=== PATIENT | male | born 1980 | race American Indian/Alaskan Native ===

== ENCOUNTER 2017-05-08 01:03 | Emergency (ER) | payer MEDICAID ==
[2017-05-08 01:04] VITALS: BMI 65.1
[2017-05-08 01:11] VITALS: BP 145/78; PULSE 72; RESP 16; TEMP 98; O2SAT 100
--- NOTE | 2017-05-08 02:11 | ED PDOC ---
HPI: Psych/Substance Abuse Time Seen by Provider: 05/08/17 01:35 Chief Complaint (Nursing): Substance Abuse Chief Complaint (Provider): Substance abuse History Per: Patient History/Exam Limitations: no limitations Onset/Duration Of Symptoms: Days, Persistent Additional Complaint(s): 36yo male with history of poly-substance abuse, presents to ED requesting detoxification. When informed that this facility does not have detox, patient states he feels depressed and homicidal. He denies any active homicidal plans. Patient does admit to drug and alcohol use today. He denies any other medical complaints. Past Medical History Reviewed: Historical Data, Nursing Documentation, Vital Signs Vital Signs: Last Vital Signs Temp 98.0 F 05/08/17 01:09 Pulse 72 05/08/17 01:09 Resp 16 05/08/17 01:09 BP 145/78 05/08/17 01:09 Pulse Ox 100 05/08/17 01:09 - Medical History PMH: Asthma, Bipolar Disorder, Depression, HTN, Schizophrenia, Sleep Apnea Denies: Chronic Kidney Disease, Seizures, Sexually Transmitted Disease - Surgical History Surgical History: No Surg Hx - Family History Family History: States: No Known Family Hx, Unknown Family Hx - Social History Alcohol: > 2 Drinks/Day Drugs: Other (polysubstance abuse) - Immunization History Hx Tetanus Toxoid Vaccination: No Hx Influenza Vaccination: No Hx Pneumococcal Vaccination: No - Home Medications Home Medications: Ambulatory Orders Medication Instructions Recorded Depakote ER 05/04/17 [place] 05/04/17 - Allergies Allergies/Adverse Reactions: Allergies Allergy/AdvReac Type Severity Reaction Status Date / Time plum Allergy Intermediate ANAPHYLAXIS Verified 05/06/17 19:49 PORK AdvReac Mild VOMITING Verified 05/06/17 19:48 Review of Systems ROS Statement: Except As Marked, All Systems Reviewed And Found Negative Psych: Positive for: Depression, Other (homicidal ideation, no plan) Physical Exam - Reviewed Nursing Documentation Reviewed: Yes Vital Signs Reviewed: Yes - Physical Exam Appears: Positive for: Non-toxic, No Acute Distress Head Exam: Positive for: ATRAUMATIC, NORMAL INSPECTION, NORMOCEPHALIC Skin: Positive for: Normal Color Eye Exam: Positive for: Normal appearance, EOMI, PERRL Neck: Positive for: Supple Cardiovascular/Chest: Positive for: Regular Rate, Rhythm Respiratory: Positive for: Normal Breath Sounds. Negative for: Respiratory Distress Gastrointestinal/Abdominal: Positive for: Soft. Negative for: Tenderness Extremity: Positive for: Normal ROM Neurologic/Psych: Positive for: Alert, Oriented. Negative for: Motor/Sensory Deficits - Laboratory Results Result Diagrams: 05/08/17 03:03 05/08/17 03:03 - ECG O2 Sat by Pulse Oximetry: 100 (RA) Pulse Ox Interpretation: Normal Medical Decision Making Medical Decision Making: Impression: Alcohol abuse, drug abuse Plan: -- Labs -- Crisis evaluation Time: 422 Labs reviewed and are within normal limits. Patient did not develop any withdrawal symptoms while within the ED. Patient seen and evaluated by crisis team as well and is stable for discharge home. Diagnosis of: poly-substance drug abuse per Dr. Han. Scribe Attestation: Documented by Linda Cm, acting as a scribe for Abdirahman Renee MD Provider Scribe Attestation: All medical record entries made by the Scribe were at my direction and personally dictated by me. I have reviewed the chart and agree that the record accurately reflects my personal performance of the history, physical exam, medical decision making, and the department course for this patient. I have also personally directed, reviewed, and agree with the discharge instructions and disposition. Disposition - Clinical Impression Clinical Impression: Polysubstance abuse - Disposition Referrals: [facility] [Outside] Abelino Duque MD [Family Provider] - Disposition: Routine/Home Disposition Time: 04:24 Condition: STABLE Instructions: Depression (ED), Suicide Prevention for Children and Adolescents (DC), Polysubstance Abuse (ED) Forms: [employer] (Spanish)
[2017-05-08 03:18] LABS: BASO % 0.7 % (0.0-2.0); EOS # 0.1 K/uL (0.0-0.7); EOS % 1.3 % (0.0-4.0); HEMOGLOBIN 13.1 g/dL (12.0-18.0); LYMPH # 1.9 K/uL (1.0-4.3); LYMPH % 44.8 % (20.0-40.0); MEAN CELL VOLUME 98.8 fl (80.0-94.0); MEAN CORPUSCULAR HGB CONC 33.4 g/dL (33.0-37.0); MONO # 0.5 K/uL (0.0-0.8); MONO % 11.6 % (0.0-10.0); NEUT # 1.8 K/uL (1.8-7.0); NEUT % 41.6 % (50.0-75.0); NRBC % 0.3 % (0.0-0.0); RBC 3.97 Mil/uL (4.40-5.90); WHITE BLOOD COUNT 4.3 K/uL (4.8-10.8)
[2017-05-08 03:20] LABS: ACETAMINOPHEN < 10.0 ug/ml (10.0-30.0); SALICYLATE < 1.0 mg/dl
[2017-05-08 03:22] LABS: BARBITURATES, UR NEGATIVE (NEGATIVE); BENZODIAZEPINES, UR NEGATIVE (NEGATIVE); OPIATES, UR NEGATIVE (NEGATIVE)
[2017-05-08 03:23] LABS: BLOOD UREA NITROGEN 6 mg/dl (9-20); CALCIUM 9.3 mg/dL (8.4-10.2); GFR AFRICAN-AMERICAN > 60; GFR NON-AFRICAN AMERICAN > 60
[2017-05-08 03:27] LABS: PHENCYCLIDINE, UR POSITIVE (NEGATIVE)
== END 2017-05-08 04:53 | disposition home or self-care (01) ==
LOC: H.ER 01:03
DX: F19.10 Other psychoactive substance abuse, uncomplicated (principal); F32.9 Major depressive disorder, single episode, unspecified; F10.10 Alcohol abuse, uncomplicated; F20.9 Schizophrenia, unspecified; F31.9 Bipolar disorder, unspecified; I10 Essential (primary) hypertension; J45.909 Unspecified asthma, uncomplicated

== ENCOUNTER 2017-09-17 13:54 | Emergency (ER) | payer MEDICAID ==
[2017-09-17 13:54] VITALS: BMI 25.1
[2017-09-17 14:57] LABS: BASO % 0.9 % (0.0-2.0); EOS % 0.8 % (0.0-4.0); HEMOGLOBIN 13.1 g/dL (12.0-18.0); LYMPH # 1.9 K/uL (1.0-4.3); LYMPH % 34.5 % (20.0-40.0); MEAN CELL VOLUME 99.2 fl (80.0-94.0); MEAN CORPUSCULAR HEMOGLOBIN 33.7 pg (27.0-31.0); MEAN PLATELET VOLUME 7.7 fl (7.2-11.7); MONO # 0.7 K/uL (0.0-0.8); MONO % 12.9 % (0.0-10.0); NEUT # 2.8 K/uL (1.8-7.0); NEUT % 50.9 % (50.0-75.0); NRBC % 0.1 % (0.0-0.0); RBC 3.89 Mil/uL (4.40-5.90); RED CELL DISTRIBUTION WIDTH 13.7 % (11.5-14.5); WHITE BLOOD COUNT 5.4 K/uL (4.8-10.8)
[2017-09-17 15:03] LABS: URINE BILIRUBIN NEGATIVE (NEGATIVE); URINE BLOOD NEGATIVE (NEGATIVE); URINE CLARITY SLIGHTY-CLOUDY (Clear); URINE COLOR YELLOW (YELLOW); URINE GLUCOSE (UA) NEG (Normal); URINE HYALINE CAST 0-2 /hpf (0-2); URINE LEUKOCYTE ESTERASE NEG Leu/uL (Negative); URINE PROTEIN 30 mg/dL (NEGATIVE)
[2017-09-17 15:07] LABS: ALB/GLOB RATIO 1.1 (1.0-2.1); ALBUMIN 4.3 g/dL (3.5-5.0); ALT/SGPT 31 U/L (21-72); AST/SGOT 62 U/L (17-59); BLOOD UREA NITROGEN 14 mg/dl (9-20); CALCIUM 8.9 mg/dL (8.4-10.2); GFR AFRICAN-AMERICAN > 60; GFR NON-AFRICAN AMERICAN > 60
[2017-09-17 15:08] LABS: ACETAMINOPHEN < 10.0 ug/ml (10.0-30.0); SALICYLATE < 1.0 mg/dl
[2017-09-17 15:32] LABS: BARBITURATES, UR NEGATIVE (NEGATIVE); BENZODIAZEPINES, UR NEGATIVE (NEGATIVE); OPIATES, UR NEGATIVE (NEGATIVE); PHENCYCLIDINE, UR POSITIVE (NEGATIVE)
--- NOTE | 2017-09-17 16:13 | ED PDOC ---
HPI: Psych/Substance Abuse Chief Complaint (Nursing): Psychiatric Evaluation Chief Complaint (Provider): Psychiatric Evaluation History Per: Patient Onset/Duration Of Symptoms: Hrs ([employer]) Current Symptoms Are (Timing): Still Present Additional History Per: Law Enforcement Additional Complaint(s): 36 year old male with a history of bipolar disorder, HTN, and schizophrenia presents to the ED for psychiatric evaluation. Patient was brought in by law enforcement who reports that he was swimming in a pool with clothes on while having visual hallucinations of his friends. He denies suicidal ideation, auditory hallucinations, other injuries, or medical complaints. PMD: none provided Past Medical History Vital Signs: Last Vital Signs Temp 100.6 F H 09/17/17 14:01 Pulse 90 09/17/17 14:01 Resp 18 09/17/17 14:01 BP 136/83 09/17/17 14:01 Pulse Ox 99 09/17/17 14:01 - Medical History PMH: Asthma, Bipolar Disorder, Depression, HTN, Schizophrenia, Sleep Apnea Denies: Diabetes, Hepatitis, HIV, Chronic Kidney Disease, Seizures, Sexually Transmitted Disease - Family History Family History: States: Unknown Family Hx - Social History Current smoker - smoking cessation education provided: Yes (Heavy smoker ) Ex-Smoker (has not smoked in the last 12 months): No Alcohol: Other (yes) Drugs: Other (PCP) - Immunization History Hx Tetanus Toxoid Vaccination: No Hx Influenza Vaccination: No Hx Pneumococcal Vaccination: No - Home Medications Home Medications: Ambulatory Orders Medication Instructions Recorded No Known Home Med 05/14/17 - Allergies Allergies/Adverse Reactions: Allergies Allergy/AdvReac Type Severity Reaction Status Date / Time plum Allergy Intermediate ANAPHYLAXIS Verified 06/02/17 06:12 PORK AdvReac Mild VOMITING Verified 06/02/17 06:12 Review of Systems ROS Statement: Except As Marked, All Systems Reviewed And Found Negative Physical Exam - Reviewed Nursing Documentation Reviewed: Yes Vital Signs Reviewed: Yes - Physical Exam Appears: Positive for: Non-toxic, No Acute Distress Head Exam: Positive for: ATRAUMATIC, NORMAL INSPECTION, NORMOCEPHALIC Skin: Positive for: Normal Color, Warm, Dry Eye Exam: Positive for: EOMI, Normal appearance, PERRL Neck: Positive for: Normal, Painless ROM Cardiovascular/Chest: Positive for: Regular Rate, Rhythm Respiratory: Positive for: Normal Breath Sounds Gastrointestinal/Abdominal: Positive for: Normal Exam, Soft. Negative for: Tenderness Extremity: Positive for: Normal ROM (upper and lower extremities) Neurologic/Psych: Positive for: Alert, Oriented (x3) - Laboratory Results Result Diagrams: 09/17/17 14:51 09/17/17 14:51 - ECG O2 Sat by Pulse Oximetry: 99 (RA) Pulse Ox Interpretation: Normal Medical Decision Making Medical Decision Making: Time: 16:00 --Patient is medically cleared for psychiatric evaluation. --Patient screened by screened by [facility] Scribe Attestation: Documented by Anastasiia Schmidt, acting as a scribe for Maksim Cunningham DO Provider Scribe Attestation: All medical record entries made by the Scribe were at my direction and personally dictated by me. I have reviewed the chart and agree that the record accurately reflects my personal performance of the history, physical exam, medical decision making, and the department course for this patient. I have also personally directed, reviewed, and agree with the discharge instructions and disposition Disposition - Clinical Impression Clinical Impression: Schizophrenia - Disposition Disposition Time: 19:00 Condition: STABLE Forms: [employer] (Bur[place]ian)
--- NOTE | 2017-09-17 19:12 | ED PDOC ---
- Laboratory Results Result Diagrams: 09/17/17 14:51 09/17/17 14:51 - ECG O2 Sat by Pulse Oximetry: 99 (RA) Pulse Ox Interpretation: Normal Medical Decision Making Medical Decision Making: Time: 1900 Patient signed out to me by Dr. Cunningham pending reevaluation. 0600 Patient masturbating and threatening to staff, given 2mg IM ativan [address] Maddox [place] [facility] [place]ribe Attestation: Documented by Phan De Anda, acting as a scribe for Abdirahman Renee MD Provider Scribe Attestation: All medical record entries made by the Scribe were at my direction and personally dictated by me. I have reviewed the chart and agree that the record accurately reflects my personal performance of the history, physical exam, medical decision making, and the department course for this patient. I have also personally directed, reviewed, and agree with the discharge instructions and disposition. Disposition - Clinical Impression Clinical Impression: Schizophrenia - POA Present On Arrival: None - Disposition Disposition: Transfer of Care Disposition Time: 07:00 Condition: STABLE Instructions: Schizophrenia Forms: [employer] ([place] Islander) Patient Signed Over To: Katt Maddox Handoff Comments: pending [facility] [place]
[2017-09-18 02:52] VITALS: TEMP 98.8
--- NOTE | 2017-09-18 07:24 | ED PDOC ---
- Laboratory Results Result Diagrams: 09/17/17 14:51 09/17/17 14:51 - ECG O2 Sat by Pulse Oximetry: 95 (RA) Pulse Ox Interpretation: Normal Medical Decision Making Medical Decision Making: Patient endorsed to me by Dr. Renee @ 0700, pending crisis evaluation. Time: 831 Plan: -- Activam 2 mg PO Time: 847 Plan: -- Haldol 5 mg IM Time: 1312 -- Patient cleared by crisis and to be discharged home. Scribe Attestation: Documented by Mariela Machado, acting as a scribe for Dr. Katt Maddox MD. Provider Scribe Attestation: All medical record entries made by the Scribe were at my direction and personally dictated by me. I have reviewed the chart and agree that the record accurately reflects my personal performance of the history, physical exam, medical decision making, and the department course for this patient. I have also personally directed, reviewed, and agree with the discharge instructions and disposition. Disposition - Clinical Impression Clinical Impression: Schizophrenia - Disposition Condition: STABLE Additional Instructions: FOLLOW-UP WITH PSYCHIATRY. Instructions: Schizophrenia Forms: [employer] (Kenyan)
--- NOTE | 2017-09-18 09:40 | RAD ---
HISTORY: r/o infiltrate COMPARISON: No prior. FINDINGS: LUNGS: No active pulmonary disease. PLEURA: No significant pleural effusion identified, no pneumothorax apparent. CARDIOVASCULAR: Normal. OSSEOUS STRUCTURES: No significant abnormalities. VISUALIZED UPPER ABDOMEN: Normal. OTHER FINDINGS: None. IMPRESSION: No active disease.
[2017-09-18 13:08] VITALS: BP 112/70; PULSE 64
[2017-09-18 13:51] VITALS: RESP 18; O2SAT 99
--- NOTE | 2017-09-19 14:27 | CARD ---
APPROVED REPORT EKG Measurement Heart [id number] <Conclusion> Normal sinus rhythm Normal ECG
== END 2017-09-18 13:52 | disposition home or self-care (01) ==
LOC: H.ER 13:54
DX: F20.9 Schizophrenia, unspecified (principal); F17.200 Nicotine dependence, unspecified, uncomplicated; Z86.59 Personal history of other mental and behavioral disorders; Z00.8 Encounter for other general examination; J45.909 Unspecified asthma, uncomplicated; I10 Essential (primary) hypertension
CPT/HCPCS: 71045; 80053; 80320; 80324; 80329; 80345; 80346; 80349; 80353; 80358; 80361; 81003; 83992; 85025; 93005; 96372; 99285; J1630; J2060; J3486

== ENCOUNTER 2017-09-19 15:55 | Emergency (ER) | payer MEDICAID ==
[2017-09-19 16:01] VITALS: BMI 41.2
--- NOTE | 2017-09-19 18:08 | ED PDOC ---
HPI: Psych/Substance Abuse Time Seen by Provider: 09/19/17 16:33 Chief Complaint (Nursing): Psychiatric Evaluation Chief Complaint (Provider): Psychiatric Evaluation History Per: Patient History/Exam Limitations: no limitations Onset/Duration Of Symptoms: Days (x 1) Current Symptoms Are (Timing): Still Present Suicide/Self Injury Attempted (Context): None Modifying Factor(s): Alcohol, Marijuana, Other (PCP) Additional Complaint(s): 36 year old male with a history of bipolar disorder and schizophrenia presents to the ED for psychiatric evaluation. Patient reports that he wants to kill himself by jumping out of a plane and shooting himself in the head. He admits to smoking marijuana, taking PCP and drinking alcohol today. Denies chest pain, shortness of breath and hallucinations. PMD: Dr. Abelino Duque Past Medical History Reviewed: Historical Data, Nursing Documentation, Vital Signs Vital Signs: Last Vital Signs Temp 98.9 F 09/19/17 16:01 Pulse 89 09/19/17 16:01 Resp 20 09/19/17 16:01 BP 128/71 09/19/17 16:01 Pulse Ox 100 09/19/17 16:01 - Medical History PMH: Asthma, Bipolar Disorder, Depression, HTN, Schizophrenia, Sleep Apnea Denies: Diabetes, Hepatitis, HIV, Chronic Kidney Disease, Seizures, Sexually Transmitted Disease - Surgical History Surgical History: No Surg Hx - Family History Family History: States: Unknown Family Hx - Immunization History Hx Tetanus Toxoid Vaccination: No Hx Influenza Vaccination: No Hx Pneumococcal Vaccination: No - Home Medications Home Medications: Ambulatory Orders Medication Instructions Recorded No Known Home Med 05/14/17 - Allergies Allergies/Adverse Reactions: Allergies Allergy/AdvReac Type Severity Reaction Status Date / Time plum Allergy Intermediate ANAPHYLAXIS Verified 09/19/17 23:51 PORK AdvReac Mild VOMITING Verified 09/19/17 23:51 Review of Systems ROS Statement: Except As Marked, All Systems Reviewed And Found Negative Psych: Positive for: Suicidal ideation (with plan) - ECG O2 Sat by Pulse Oximetry: 100 (RA) Pulse Ox Interpretation: Normal Medical Decision Making Medical Decision Making: Time: 16:37 Initial Plan: --Crisis evaluation --1:1 observation --urine drug Pt. walking around outside of room and attempting to make himself throw up. Pt. refusing to go back to room. Ativan 2mg IM ordered. Pt. evaluated by Maisha, conveyor line bakery worker, who spoke with Dr. Han and cleared pt. for discharge. On re-evaluation, pt. remains alert awake and oriented x 3. Gait steady and unassisted. Offers no complaints. Denies SI/HI, hallucinations. Scribe Attestation: Documented by Anca Anthony, acting as a scribe for Renato Cleaning PA-C Provider Scribe Attestation: All medical record entries made by the Scribe were at my direction and personally dictated by me. I have reviewed the chart and agree that the record accurately reflects my personal performance of the history, physical exam, medical decision making, and the department course for this patient. I have also personally directed, reviewed, and agree with the discharge instructions and disposition. Disposition - Clinical Impression Clinical Impression: Substance abuse - Patient ED Disposition Is Patient to be Admitted: No - Disposition Referrals: [facility] [Outside] Disposition: Routine/Home Disposition Time: 22:00 Condition: IMPROVED Instructions: Drug Abuse and Drug Addiction (DC) Forms: [employer] (Persian) Print Language: AMHARIC
[2017-09-20 00:04] VITALS: BP 128/80; PULSE 78; RESP 18; TEMP 98.2
[2017-09-20 12:09] VITALS: O2SAT 100
== END 2017-09-19 20:45 | disposition home or self-care (01) ==
LOC: H.ER 15:55
DX: F16.10 Hallucinogen abuse, uncomplicated (principal); F12.10 Cannabis abuse, uncomplicated; Z86.59 Personal history of other mental and behavioral disorders; I10 Essential (primary) hypertension; J45.909 Unspecified asthma, uncomplicated; Z00.8 Encounter for other general examination
CPT/HCPCS: 96372; 99283; J2060

== ENCOUNTER 2017-09-20 02:30 | Emergency (ER) | payer MEDICAID ==
[2017-09-20 02:31] VITALS: BMI 41.2
[2017-09-20 02:43] VITALS: RESP 16; TEMP 98; O2SAT 100
--- NOTE | 2017-09-20 04:14 | ED PDOC ---
HPI: Psych/Substance Abuse Time Seen by Provider: 09/20/17 03:05 Chief Complaint (Nursing): Psychiatric Evaluation Chief Complaint (Provider): Psychiatric Evaluation History Per: Patient History/Exam Limitations: no limitations Onset/Duration Of Symptoms: Other Current Symptoms Are (Timing): Other Additional Complaint(s): 36 y/[facility] earlier today at [facility] and cleared by their psychiatric team. Patient has no complaints at this time and only wishes to sleep. Past Medical History Reviewed: Historical Data, Nursing Documentation, Vital Signs Vital Signs: Last Vital Signs Temp 98.0 F 09/20/17 02:35 Pulse 78 09/20/17 02:35 Resp 16 09/20/17 02:35 BP 118/74 09/20/17 02:35 Pulse Ox 100 09/20/17 02:35 - Medical History PMH: Asthma, Bipolar Disorder, Depression, HTN, Schizophrenia, Sleep Apnea Denies: Diabetes, Hepatitis, HIV, Chronic Kidney Disease, Seizures, Sexually Transmitted Disease - Surgical History Surgical History: No Surg Hx - Family History Family History: States: Unknown Family Hx - Immunization History Hx Tetanus Toxoid Vaccination: No Hx Influenza Vaccination: No Hx Pneumococcal Vaccination: No - Home Medications Home Medications: Ambulatory Orders Medication Instructions Recorded No Known Home Med 05/14/17 - Allergies Allergies/Adverse Reactions: Allergies Allergy/AdvReac Type Severity Reaction Status Date / Time plum Allergy Intermediate ANAPHYLAXIS Verified 09/19/17 23:51 PORK AdvReac Mild VOMITING Verified 09/19/17 23:51 Review of Systems ROS Statement: Except As Marked, All Systems Reviewed And Found Negative Physical Exam - Reviewed Nursing Documentation Reviewed: Yes Vital Signs Reviewed: Yes - Physical Exam Comments: GENERAL APPEARANCE: Patient is sleeping, but arouses easily, oriented x 3, in no acute distress. SKIN: Warm, dry; (-) cyanosis HEAD: (-) scalp swelling, (-) scalp tenderness. EYES: (-) conjunctival pallor, (-) scleral icterus, (-) nystagmus. ENMT: Mucous membranes moist. Airway patent: (-) stridor. NECK: (-) tenderness, (-) stiffness, (-) lymphadenopathy. CHEST AND RESPIRATORY: (-) rales, (-) rhonchi, (-) wheezes; breath sounds equal. ABDOMEN: Soft, (-) distention, (-) tenderness, (-) guarding. NEURO AND PSYCH: Mental status as above. 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 Pupils equal and reactive; EOMI; (-) facial asymmetry ; tongue and uvula midline. - ECG O2 Sat by Pulse Oximetry: 100 (RA) Pulse Ox Interpretation: Normal Medical Decision Making Medical Decision Making: Plan: Patient given a bed to sleep. 0430 On re-evaluation, patient is now awake, ambulating in the ER with a steady gait. he is asking where he can go for rehab. Patient advised that this hospital does not have rehab, advised to go to [facility]. Patient is stable for discharge, Scribe Attestation: Documented by Saul Montoya, acting as a scribe for Luz Sanchez PA-C. Provider Scribe Attestation: All medical record entries made by the Scribe were at my direction and personally dictated by me. I have reviewed the chart and agree that the record accurately reflects my personal performance of the history, physical exam, medical decision making, and the department course for this patient. I have also personally directed, reviewed, and agree with the discharge instructions and disposition. Disposition - Clinical Impression Clinical Impression: Homelessness - Patient ED Disposition Is Patient to be Admitted: No - Disposition Disposition: Routine/Home Disposition Time: 04:30 Condition: STABLE Forms: [employer] (Serbian) - PA / PIG HANDLER / Resident Statement MD/DO has reviewed & agrees with the documentation as recorded.
[2017-09-20 05:56] VITALS: BP 120/82; PULSE 72
[2017-09-20] MEDS ORDERED: Ciprofloxacin 400mg/200ml D5W 400 MG/200 ML BAG IVPB ONE (12:56)
== END 2017-09-20 04:30 | disposition home or self-care (01) ==
LOC: H.ER 02:30
DX: Z59.0 Homelessness (principal); F20.9 Schizophrenia, unspecified; F31.9 Bipolar disorder, unspecified; I10 Essential (primary) hypertension; J45.909 Unspecified asthma, uncomplicated

== ENCOUNTER 2017-09-30 23:30 | Emergency (ER) | payer MEDICAID ==
[2017-09-30 23:31] VITALS: BMI 41.2
[2017-09-30 23:37] VITALS: BP 138/78; PULSE 78; RESP 18; TEMP 97.8; O2SAT 99
--- NOTE | 2017-10-01 00:07 | ED PDOC ---
HPI: General Adult Time Seen by Provider: 09/30/17 23:58 Chief Complaint (Nursing): Medical Clearance Past Medical History Vital Signs: Last Vital Signs Temp 97.8 F 09/30/17 23:33 Pulse 78 09/30/17 23:33 Resp 18 09/30/17 23:33 BP 138/78 09/30/17 23:33 Pulse Ox 99 09/30/17 23:33 - Medical History PMH: Asthma, Bipolar Disorder, Depression, HTN, Schizophrenia, Sleep Apnea Denies: Diabetes, Hepatitis, HIV, Chronic Kidney Disease, Seizures, Sexually Transmitted Disease - Family History Family History: States: Unknown Family Hx - Immunization History Hx Tetanus Toxoid Vaccination: No Hx Influenza Vaccination: No Hx Pneumococcal Vaccination: No - Home Medications Home Medications: Ambulatory Orders Medication Instructions Recorded No Known Home Med 05/14/17 - Allergies Allergies/Adverse Reactions: Allergies Allergy/AdvReac Type Severity Reaction Status Date / Time plum Allergy Intermediate ANAPHYLAXIS Verified 09/19/17 23:51 PORK AdvReac Mild VOMITING Verified 09/19/17 23:51 - ECG O2 Sat by Pulse Oximetry: 99 Disposition - Clinical Impression Clinical Impression: Schizophrenia - Patient ED Disposition Is Patient to be Admitted: No Counseled Patient/Family Regarding: Diagnosis, Need For Followup - Disposition Disposition: Routine/Home Disposition Time: 00:02 Condition: STABLE Instructions: General (DC), Schizophrenia (DC)
== END 2017-09-30 23:58 | disposition left against medical advice (07) ==
LOC: H.ER 23:30
DX: Z02.89 Encounter for other administrative examinations (principal)

== ENCOUNTER 2017-10-01 00:06 | Emergency (ER) | payer MEDICAID ==
[2017-10-01 00:06] VITALS: BMI 41.2
[2017-10-01 00:23] VITALS: BP 142/71; PULSE 78; RESP 16; TEMP 98; O2SAT 98
--- NOTE | 2017-10-01 00:26 | ED PDOC ---
HPI: General Adult Time Seen by Provider: 10/01/17 00:12 Chief Complaint (Nursing): Medical Clearance Chief Complaint (Provider): Horny History Per: Patient History/Exam Limitations: no limitations Onset/Duration Of Symptoms: Days Have you had recent travel within the past 21 days to any of the following countries: [place], [place], [place] or [place]?: No Current Symptoms Are (Timing): Better Additional Complaint(s): 36 yo male with history of schizophrenia presents with feeling horny. Pt states that is why he was masturbating in the waiting room. Pt states he just wants to be alone. Pt states he would like to go back to his room upstairs so that he can watch TV and be left alone. Pt states he has not taken his medications in a long time but denies SI/HI and hearing voices. Past Medical History Reviewed: Historical Data, Nursing Documentation, Vital Signs Vital Signs: Last Vital Signs Temp 98 F 10/01/17 00:15 Pulse 78 10/01/17 00:15 Resp 16 10/01/17 00:15 BP 142/71 10/01/17 00:15 Pulse Ox 98 10/01/17 00:15 - Medical History PMH: Asthma, Bipolar Disorder, Depression, HTN, Schizophrenia, Sleep Apnea Denies: Diabetes, Hepatitis, HIV, Chronic Kidney Disease, Seizures, Sexually Transmitted Disease - Surgical History Surgical History: No Surg Hx - Family History Family History: States: Unknown Family Hx - Immunization History Hx Tetanus Toxoid Vaccination: No Hx Influenza Vaccination: No Hx Pneumococcal Vaccination: No - Home Medications Home Medications: Ambulatory Orders Medication Instructions Recorded No Known Home Med 05/14/17 - Allergies Allergies/Adverse Reactions: Allergies Allergy/AdvReac Type Severity Reaction Status Date / Time plum Allergy Intermediate ANAPHYLAXIS Verified 09/19/17 23:51 PORK AdvReac Mild VOMITING Verified 09/19/17 23:51 Review of Systems ROS Statement: Except As Marked, All Systems Reviewed And Found Negative Constitutional: Negative for: Fever, Chills Neurological: Negative for: Weakness Psych: Negative for: Psychosis, Suicidal ideation, Withdrawal Physical Exam - Reviewed Nursing Documentation Reviewed: Yes Vital Signs Reviewed: Yes - Physical Exam Appears: Positive for: Well, Non-toxic, No Acute Distress Head Exam: Positive for: ATRAUMATIC, NORMAL INSPECTION, NORMOCEPHALIC Skin: Positive for: Normal Color, Warm, DRY Eye Exam: Positive for: Normal appearance ENT: Positive for: Normal ENT Inspection Neck: Positive for: Normal, Painless ROM Cardiovascular/Chest: Positive for: Regular Rate, Rhythm Respiratory: Positive for: Normal Breath Sounds. Negative for: Accessory Muscle Use, Respiratory Distress Back: Positive for: Normal Inspection Extremity: Positive for: Normal ROM Neurologic/Psych: Positive for: Alert, target setter II-XII, Oriented, Gait. Negative for : Aphasia, Facial Droop - ECG O2 Sat by Pulse Oximetry: 98 Disposition - Clinical Impression Clinical Impression: Homelessness, Schizophrenia - Patient ED Disposition Is Patient to be Admitted: No Counseled Patient/Family Regarding: Diagnosis, Need For Followup - Disposition Referrals: [facility] [Outside] Disposition: Routine/Home Disposition Time: 00:26 Condition: STABLE Instructions: General (DC), Schizophrenia (DC)
== END 2017-10-01 00:25 | disposition home or self-care (01) ==
LOC: H.ER 00:06
DX: Z59.0 Homelessness (principal); F20.9 Schizophrenia, unspecified; F31.9 Bipolar disorder, unspecified; I10 Essential (primary) hypertension; J45.909 Unspecified asthma, uncomplicated

== ENCOUNTER 2017-10-03 18:55 | Emergency (ER) | payer MEDICAID ==
[2017-10-03 18:55] VITALS: BMI 41.2
[2017-10-03 19:00] VITALS: BP 119/70; RESP 16; TEMP 98; O2SAT 96
[2017-10-03 22:02] LABS: BASO % 0.6 % (0.0-2.0); EOS # 0.1 K/uL (0.0-0.7); EOS % 1.4 % (0.0-4.0); HEMOGLOBIN 12.5 g/dL (12.0-18.0); LYMPH # 1.9 K/uL (1.0-4.3); LYMPH % 43.1 % (20.0-40.0); MEAN CELL VOLUME 99.3 fl (80.0-94.0); MEAN CORPUSCULAR HEMOGLOBIN 33.1 pg (27.0-31.0); MEAN CORPUSCULAR HGB CONC 33.3 g/dL (33.0-37.0); MEAN PLATELET VOLUME 7.9 fl (7.2-11.7); MONO # 0.7 K/uL (0.0-0.8); MONO % 15.4 % (0.0-10.0); NEUT # 1.8 K/uL (1.8-7.0); NEUT % 39.5 % (50.0-75.0); NRBC % 0.1 % (0.0-0.0); RBC 3.78 Mil/uL (4.40-5.90); RED CELL DISTRIBUTION WIDTH 13.5 % (11.5-14.5); WHITE BLOOD COUNT 4.5 K/uL (4.8-10.8)
[2017-10-03 22:09] LABS: ACETAMINOPHEN < 10.0 ug/ml (10.0-30.0); SALICYLATE < 1.0 mg/dl
[2017-10-03 22:11] LABS: ALB/GLOB RATIO 1.1 (1.0-2.1); ALBUMIN 3.7 g/dL (3.5-5.0); ALT/SGPT 39 U/L (21-72); AST/SGOT 39 U/L (17-59); BLOOD UREA NITROGEN 12 mg/dl (9-20); CALCIUM 8.8 mg/dL (8.4-10.2); GFR AFRICAN-AMERICAN > 60; GFR NON-AFRICAN AMERICAN > 60
[2017-10-03 22:59] LABS: SQUAMOUS EPITHIAL < 1 /hpf (0-5); URINE BILIRUBIN NEGATIVE (NEGATIVE); URINE BLOOD NEGATIVE (NEGATIVE); URINE CLARITY SLIGHTY-CLOUDY (Clear); URINE COLOR YELLOW (YELLOW); URINE GLUCOSE (UA) NEG (Normal); URINE LEUKOCYTE ESTERASE NEG Leu/uL (Negative); URINE PROTEIN 30 mg/dL (NEGATIVE)
[2017-10-03 23:18] LABS: BARBITURATES, UR NEGATIVE (NEGATIVE); BENZODIAZEPINES, UR NEGATIVE (NEGATIVE); OPIATES, UR NEGATIVE (NEGATIVE); PHENCYCLIDINE, UR POSITIVE (NEGATIVE)
--- NOTE | 2017-10-04 00:08 | ED PDOC ---
HPI: Psych/Substance Abuse Time Seen by Provider: 10/03/17 19:18 Chief Complaint (Nursing): Psychiatric Evaluation Chief Complaint (Provider): Psychiatric Evaluation ED Caveat: Uncooperative History Per: EMS History/Exam Limitations: no limitations Current Symptoms Are (Timing): Still Present Suicide/Self Injury Attempted (Context): Other (Hanging) Involuntary Hold By: Local Law Enforcement Additional Complaint(s): 36 year old male brought in by EMS while in custody of police presents to ED for a psychiatric evaluation and has a past medical history of asthma, HTN, bipolar disorder, depression, and schizophrenia. As per police, patient is brought in for evaluation after attempting to hang himself twice while in senior care. Patient is uncooperative upon ED arrival. PCP: None Past Medical History Reviewed: Historical Data, Nursing Documentation, Vital Signs Vital Signs: Last Vital Signs Temp 98.0 F 10/03/17 18:58 Pulse 69 10/03/17 18:58 Resp 16 10/03/17 18:58 BP 119/70 10/03/17 18:58 Pulse Ox 96 10/03/17 18:58 - Medical History PMH: Asthma, Bipolar Disorder, Depression, HTN, Schizophrenia, Sleep Apnea Denies: Diabetes, Hepatitis, HIV, Chronic Kidney Disease, Seizures, Sexually Transmitted Disease - Surgical History Surgical History: Denies: No Surg Hx - Family History Family History: States: Unknown Family Hx - Social History Current smoker - smoking cessation education provided: Yes Ex-Smoker (has not smoked in the last 12 months): No Alcohol: Social Drugs: Cannabis, Other (PCP) - Immunization History Hx Tetanus Toxoid Vaccination: No Hx Influenza Vaccination: No Hx Pneumococcal Vaccination: No - Home Medications Home Medications: Ambulatory Orders Medication Instructions Recorded No Known Home Med 05/14/17 - Allergies Allergies/Adverse Reactions: Allergies Allergy/AdvReac Type Severity Reaction Status Date / Time plum Allergy Intermediate ANAPHYLAXIS Verified 10/03/17 18:58 PORK AdvReac Mild VOMITING Verified 10/03/17 18:58 Review of Systems Review Of Systems: ROS cannot be obtained secondary to pt's inabilty to answer questions. (Patient is uncooperative) Physical Exam - Reviewed Nursing Documentation Reviewed: Yes Vital Signs Reviewed: Yes - Physical Exam Appears: Positive for: Non-toxic, No Acute Distress (obese) Head Exam: Positive for: ATRAUMATIC, NORMOCEPHALIC Skin: Positive for: Normal Color, Dry Cardiovascular/Chest: Positive for: Regular Rate, Rhythm. Negative for: Murmur Respiratory: Positive for: Normal Breath Sounds. Negative for: Respiratory Distress Gastrointestinal/Abdominal: Positive for: Normal Exam, Soft. Negative for: Tenderness Extremity: Positive for: Normal ROM. Negative for: Deformity Neurologic/Psych: Positive for: Alert (uncooperative), Oriented. Negative for: Motor/Sensory Deficits - Laboratory Results Result Diagrams: 10/03/17 21:50 10/03/17 21:50 - ECG O2 Sat by Pulse Oximetry: 96 (RA) Pulse Ox Interpretation: Normal Medical Decision Making Medical Decision Makin Initial impression: crisis eval Initial plan: * EKG * Acetaminophen * EtOH serum * Labs * UDrug screen * Salicylate * Crisis eval * CXR * UA 2119 Patient is agitated, belligerent, and poses a risk to ED staff. Patient chemically sedated for patient's own safety and safety of staff. * Ativan 2mg IM * Hladol 5mg IM * Re-eval 2300 Labs reviewed: no clinically significant abnormalities with exceptions for positive indications of cannabinoid and phencyclidine use. As per crisis, patient will need [facility] screening. 0000 Patient will be signed out to Dr. Douglass pending CXR, EKG, and [facility] evaluation. Scribe Attestation: Documented by Sofiya Gonzalez acting as a scribe for Katt Maddox MD. DO Scribe Attestation: All medical record entries made by the Scribe were at my direction and personally dictated by me. I have reviewed the chart and agree that the record accurately reflects my personal performance of the history, physical exam, medical decision making, and the department course for this patient. I have also personally directed, reviewed, and agree with the discharge instructions and disposition. Disposition - Disposition Forms: [employer] (Nepali)
--- NOTE | 2017-10-04 00:21 | ED PDOC ---
- Laboratory Results Result Diagrams: 10/03/17 21:50 10/03/17 21:50 - ECG ECG Rhythm: Positive for: Normal QRS, Normal ST Segment, Sinus Bradycardia Rate: 57 O2 Sat by Pulse Oximetry: 96 (RA) Medical Decision Making Medical Decision Makin Patient signed out to this provider from Dr. Maddox pending EKG, CXR, and crisis evaluation. 0220 CXR: unchanged from prior. Patient is resting comfortably in room. Vitals stable. Pending crisis evaluation. 0320 Patient evaluated by crisis and diagnosed with schizophrenia. Patient [place] [facility]. 0500 Patient resting comfortably. Vitals stable. 0700 Patient resting comfortably. Vitals stable. Patient will be signed out to Dr. Negrete pending [facility] bed availability. Scribe Attestation: Documented by Sofiya Gonzalez acting as a scribe for Abelardo Douglass MD. Scribe Attestation: All medical record entries made by the Scribe were at my direction and personally dictated by me. I have reviewed the chart and agree that the record accurately reflects my personal performance of the history, physical exam, medical decision making, and the department course for this patient. I have also personally directed, reviewed, and agree with the discharge instructions and disposition. Disposition - Clinical Impression Clinical Impression: Substance abuse - POA Present On Arrival: None - Disposition Referrals: [facility] [Outside] Disposition: Transfer of Care Disposition Time: 07:00 Condition: STABLE Additional Instructions: Medically and psychiatrically stable for incarceration Instructions: Drug Abuse and Drug Addiction (DC) Forms: [employer] (Croatian) Patient Signed Over To: Clyde Negrete Handoff Comments: pending [facility] [place]
[2017-10-04 02:13] VITALS: PULSE 57
--- NOTE | 2017-10-04 08:39 | CARD ---
APPROVED REPORT EKG Measurement Heart [id number] <Conclusion> Sinus bradycardia Otherwise normal ECG
--- NOTE | 2017-10-04 09:07 | RAD ---
HISTORY: Medical clearance COMPARISON: 09/17/2017 FINDINGS: LUNGS: No active pulmonary disease. PLEURA: No significant pleural effusion identified, no pneumothorax apparent. CARDIOVASCULAR: Normal. OSSEOUS STRUCTURES: No significant abnormalities. VISUALIZED UPPER ABDOMEN: Normal. OTHER FINDINGS: None. IMPRESSION: No active disease. No significant interval change compared to the prior examination(s).
--- NOTE | 2017-10-04 10:21 | ED PDOC ---
- Laboratory Results Result Diagrams: 10/03/17 21:50 10/03/17 21:50 - ECG O2 Sat by Pulse Oximetry: 96 (RA) Disposition - Clinical Impression Clinical Impression: Substance abuse - POA Present On Arrival: None - Disposition Referrals: [facility] [Outside] Disposition: Discharged/Transfer to Law Enforcement Disposition Time: 10:20 Condition: STABLE Additional Instructions: Medically and psychiatrically stable for incarceration Instructions: Drug Abuse and Drug Addiction (DC) Forms: [employer] (Swedish)
== END 2017-10-04 10:20 ==
LOC: H.ER 18:55
DX: F19.10 Other psychoactive substance abuse, uncomplicated (principal); F20.9 Schizophrenia, unspecified; F31.9 Bipolar disorder, unspecified; I10 Essential (primary) hypertension; J45.909 Unspecified asthma, uncomplicated; F17.200 Nicotine dependence, unspecified, uncomplicated
CPT/HCPCS: 71045; 80053; 80320; 80324; 80329; 80345; 80346; 80349; 80353; 80358; 80361; 81003; 83992; 85025; 93005; 96372; 99283; J1630; J2060